=== PATIENT | male | born 1950 | race Caucasian/White ===

== ENCOUNTER 2023-03-12 09:43 | Day surgery (SDC) | payer MEDICARE, OTHER ==
[2023-03-12] MEDS ORDERED: IOPAMIDOL-250 100ML BTL IVP ONE (11:12)
--- NOTE | 2023-03-12 13:11 | IR ---
Fluoroscopic portogram([facility]). HISTORY: Device malfunction. The patient presented to the CVL with a Walker needle within the port. Preliminary fluoroscopy demonst rated the catheter to be intact. No evidence of obstruction or extravasation. An initial injection was outside the port and there was a little soft tissue collection of contrast. IMPRESSION: 1. Catheter is patent with no evidence of obstruction..
[2023-03-12 15:56] VITALS: BP 155/72; PULSE 98; RESP 18; TEMP 98.2
== END 2023-03-12 11:38 | disposition home or self-care (01) ==
LOC: CATHCVL 09:43
PROVIDERS: ATTEND Radiology Diagnostic Radiology
DX: C18.6 Malignant neoplasm of descending colon (principal); C78.7 Secondary malignant neoplasm of liver and intrahepatic bile duct; J43.9 Emphysema, unspecified; Z71.3 Dietary counseling and surveillance
CPT/HCPCS: 36598; Q9966

== ENCOUNTER 2023-04-01 08:31 | Inpatient (IN) | payer MEDICARE, OTHER ==
--- NOTE | 2023-04-01 08:58 | ED ---
General Adult HPI - General Stated complaint: chest pain Time Seen by Provider: 04/01/23 08:34 Source: patient, EMS, RN notes reviewed, old records reviewed Mode of arrival: EMS Limitations: no limitations - History of Present Illness Initial comments: 73-year-old male currently being treated for metastatic colon cancer on chemotherapeutic pump currently presenting for evaluation of lactic acidosis and chest pain. Patient was transferred from outside hospital. He had a workup done including laboratory testing, EKG, CT angiography of the chest. His workup revealed a lactic acidosis of 4.4. Patient does admit to poor appetite. He denies fever. He has a right chest wall Mediport and is currently receiving chemotherapy. He does follow with oncology at this institution. Patient denies current chest pain. The pain has been intermittent over the past one week. Each episode lasting approximately an hour. This is upper chest, bilateral with radiation to the right arm. - Related Data Home Medications Medication Instructions Recorded Confirmed ALPRAZolam [Xanax] 0.25 mg PO BID PRN 04/01/23 04/01/23 HYDROcodone/APAP 5-325MG [[place] 1 tab PO Q8H PRN 04/01/23 04/01/23 5-325] Lidocaine-Prilocaine Cream [Emla 1 applic TOPICAL DIRECTED PRN 04/01/23 04/01/23 Cream 2.5%/2.5%] Ondansetron Odt [Zofran Odt] 4 mg PO Q4H PRN 04/01/23 04/01/23 polyethylene glycoL 3350 [Miralax] 17 gm PO DAILY 04/01/23 04/01/23 Allergies Allergy/AdvReac Type Severity Reaction Status Date / Time No Known Allergies Allergy Verified 04/01/23 10:11 Review of Systems ROS Statement: Those systems with pertinent positive or pertinent negative responses have been documented in the HPI. ROS Other: All systems not noted in ROS Statement are negative. Past Medical History Past Medical History: Cancer Additional Past Medical History / Comment(s): Colon cancer- stage 4, colonoscopy History of Any Multi-Drug Resistant Organisms: None Reported Past Surgical History: No Surgical Hx Reported Past Psychological History: No Psychological Hx Reported Smoking Status: Former smoker Past Alcohol Use History: None Reported Past Drug Use History: None Reported General Exam Limitations: no limitations General appearance: alert, in no apparent distress Head exam: Present: atraumatic, normocephalic Eye exam: Present: normal appearance, PERRL ENT exam: Present: mucous membranes dry Neck exam: Present: normal inspection. Absent: tenderness, meningismus Respiratory exam: Present: normal lung sounds bilaterally. Absent: respiratory distress, wheezes Cardiovascular Exam: Present: normal rhythm, tachycardia GI/Abdominal exam: Present: soft. Absent: distended, tenderness, guarding Extremities exam: Present: normal capillary refill, pedal edema Neurological exam: Present: alert, oriented X3, CN II-XII intact. Absent: motor sensory deficit Psychiatric exam: Present: normal affect, normal mood Skin exam: Present: warm, dry, intact. Absent: cyanosis, diaphoretic Course Vital Signs 04/01/23 04/01/23 04/01/23 08:34 09:13 10:07 Temperature 97.7 F Pulse Rate 102 H 91 Pulse Rate [ 94 Spun Paste Machine Operator ] Respiratory 19 19 Rate Blood Pressure 142/84 111/64 O2 Sat by Pulse 100 98 Oximetry 04/01/23 11:11 Temperature Pulse Rate 79 Pulse Rate [ Spun Paste Machine Operator ] Respiratory 18 Rate Blood Pressure 131/67 O2 Sat by Pulse 97 Oximetry Medical Decision Making - Medical Decision Making Was pt. sent in by a medical professional or institution (, PA, SUGAR PLANTATION MANAGER, urgent care, hospital, or fci...) When possible be specific @ -No Did you speak to anyone other than the patient for history (EMS, parent, family, police, friend...)? What history was obtained from this source @ -No Did you review nursing and triage notes (agree or disagree)? Why? @ -I reviewed and agree with nursing and triage notes Were old charts reviewed (outside hosp., previous admission, EMS record, old EKG, old radiological studies, urgent care reports/EKG's, fci records)? Report findings @ -No old charts were reviewed Differential Diagnosis (chest pain, altered mental status, abdominal pain women, abdominal pain men, vaginal bleeding, weakness, fever, dyspnea, syncope, headache, dizziness, GI bleed, back pain, seizure, CVA, palpatations, mental he alth, musculoskeletal)? @ -not applicable EKG interpreted by me (3pts min.). @ -[Sinus rhythm low voltage rate of 99 WY interval 186, QRS duration 76, QTC 401, no ST segment elevation. Repeat EKG at 1126, sinus rhythm low voltage rate of 81, WY interval 166, QRS duration 86, QTC [address] segment elevation. X-rays interpreted by me (1pt min.). @ -None done CT interpreted by me (1pt min.). @ -[CT angiography was performed at outside hospital, radiology interpretation is negative, no PE, no acute findings. U/S interpreted by me (1pt. min.). @ -None done What testing was considered but not performed or refused? (CT, X-rays, U/S, labs)? Why? @ -None What meds were considered but not given or refused? Why? @ -None Did you discuss the management of the patient with other professionals (professionals i.e. , PA, SUGAR PLANTATION MANAGER, lab, RT, psych nurse, sr. social media & mobile manager, business development sales executive, teacher, ammunition officer, outsole caser)? Give summary @ Dr. Abudllahi Was smoking cessation discussed for >3mins.? @ -No Was critical care preformed (if so, how long)? @ -No Were there social determinants of health that impacted care today? How? (Homeles sness, low income, unemployed, alcoholism, drug addiction, transportation, low edu. Level, literacy, decrease access to med. care, snf, rehab)? @ -No Was there de-escalation of care discussed even if they declined (Discuss DNR or withdrawal of care, Hospice)? DNR status @ -No What co-morbidities impacted this encounter? (DM, HTN, Smoking, COPD, CAD, Cancer, CVA, ARF, Chemo, Hep., AIDS, mental health diagnosis, sleep apnea, morbid obesity)? @ Stage IV colon cancer Was patient admitted / discharged? Hospital course, mention meds given and route, prescriptions, significant lab abnormalities, going to OR and other pertinent info. @ -73-year-old male transferred from outside hospital for evaluation of chest pain, lactic acidosis, stage IV colon cancer. Repeat laboratory tests will be ordered including CBC, CMP, lactic acid and troponin testing. The only initial abnormality of significance was a lactic acid of 4.4. He denies any current chest pain symptoms and his pain seems atypical. Repeat troponin will be ordered. Patient will be admitted to internal medicine with oncology on consult. Undiagnosed new problem with uncertain prognosis? @ -No Drug Therapy requiring intensive monitoring for toxicity (Heparin, Nitro, Insulin, Cardizem)? @ -No Were any procedures done? @ -No] Diagnosis/symptom? @ -[Stage IV colon cancer, lactic acidosis, chest pain Acute, or Chronic, or Acute on Chronic? @ -[Acute chronic Uncomplicated (without systemic symptoms) or Complicated (systemic symptoms)? @ -[default] Side effects of treatment? @ -[No] Exacerbation, Progression, or Severe Exacerbation? @ -[No] Poses a threat to life or bodily function? How? (Chest pain, USA, CA, pneumonia, PE, COPD, DKA, ARF, appy, cholecystitis, CVA, Diverticulitis, Homicidal, Suicidal, threat to staff... and all critical care pts) @ -[Yes, moderate risk, chest pain, stage IV cancer - Lab Data Result diagrams: 04/01/23 08:50 04/01/23 08:50 Lab Results 04/01/23 04/01/23 04/01/23 Range/Units 08:50 08:50 08:50 WBC 3.5 L (3.8-10.6) k/uL RBC 4.17 L (4.30-5.90) m/uL Hgb 11.5 L (13.0-17.5) gm/dL Hct 35.3 L (39.0-53.0) % MCV 84.7 (80.0-100.0) fL MCH 27.7 (25.0-35.0) pg MCHC 32.7 (31.0-37.0) g/dL RDW 18.8 H (11.5-15.5) % Plt Count 264 (150-450) k/uL MPV 8.5 Neutrophils % 75 % Lymphocytes % 12 % Monocytes % 10 % Eosinophils % 0 % Basophils % 0 % Neutrophils # 2.7 (1.3-7.7) k/uL Lymphocytes # 0.4 L (1.0-4.8) k/uL Monocytes # 0.3 (0-1.0) k/uL Eosinophils # 0.0 (0-0.7) k/uL Basophils # 0.0 (0-0.2) k/uL Manual Slide Review Performed Anisocytosis Slight Sodium 137 (137-145) mmol/L Potassium 4.2 (3.5-5.1) mmol/L Chloride 104 (98-107) mmol/L Carbon Dioxide 22 (22-30) mmol/L Anion Gap 11 mmol/L BUN 19 (9-20) mg/dL Creatinine 0.72 (0.66-1.25) mg/dL Est GFR (CKD-EPI)AfAm >90 (>60 ml/min/1.73 sqM) Est GFR (CKD-EPI)NonAf >90 (>60 ml/min/1.73 sqM) Glucose 166 H (74-99) mg/dL Plasma Lactic Acid Jabari 2.1 H* (0.7-2.0) mmol/L Calcium 8.8 (8.4-10.2) mg/dL Total Bilirubin 0.6 (0.2-1.3) mg/dL AST 45 (17-59) U/L ALT 32 (4-49) U/L Alkaline Phosphatase 109 (38-126) U/L Troponin I (0.000-0.034) ng/mL Total Protein 6.7 (6.3-8.2) g/dL Albumin 3.3 L (3.5-5.0) g/dL 04/01/23 Range/Units 08:50 WBC (3.8-10.6) k/uL RBC (4.30-5.90) m/uL Hgb (13.0-17.5) gm/dL Hct (39.0-53.0) % MCV (80.0-100.0) fL MCH (25.0-35.0) pg MCHC (31.0-37.0) g/dL RDW (11.5-15.5) % Plt Count (150-450) k/uL MPV Neutrophils % % Lymphocytes % % Monocytes % % Eosinophils % % Basophils % % Neutrophils # (1.3-7.7) k/uL Lymphocytes # (1.0-4.8) k/uL Monocytes # (0-1.0) k/uL Eosinophils # (0-0.7) k/uL Basophils # (0-0.2) k/uL Manual Slide Review Anisocytosis Sodium (137-145) mmol/L Potassium (3.5-5.1) mmol/L Chloride (98-107) mmol/L Carbon Dioxide (22-30) mmol/L Anion Gap mmol/L BUN (9-20) mg/dL Creatinine (0.66-1.25) mg/dL Est GFR (CKD-EPI)AfAm (>60 ml/min/1.73 sqM) Est GFR (CKD-EPI)NonAf (>60 ml/min/1.73 sqM) Glucose (74-99) mg/dL Plasma Lactic Acid Jabari (0.7-2.0) mmol/L Calcium (8.4-10.2) mg/dL Total Bilirubin (0.2-1.3) mg/dL AST (17-59) U/L ALT (4-49) U/L Alkaline Phosphatase (38-126) U/L Troponin I 0.014 (0.000-0.034) ng/mL Total Protein (6.3-8.2) g/dL Albumin (3.5-5.0) g/dL Disposition Clinical Impression: Chest pain, Lactic acidosis, Colon cancer Disposition: ADMITTED IP TO THIS [facility] Condition: Stable Is patient prescribed a controlled substance at d/c from ED?: No Time of Disposition: 09:43
[2023-04-01] MEDS: SODIUM CHLORIDE 0.9% 1,000 ML IV SCH ×2 (09:27→20:42)
[2023-04-01 09:30] LABS: Anisocytosis Slight; Basophils % (A) 0 %; Eosinophils % (A) 0 %; HCT 35.3 % (39.0-53.0); HGB 11.5 gm/dL (13.0-17.5); Lymphocytes # (A) 0.4 k/uL (1.0-4.8); Lymphocytes % (A) 12 %; MCH 27.7 pg (25.0-35.0); MCHC 32.7 g/dL (31.0-37.0); MCV 84.7 fL (80.0-100.0); Mean Platelet Volume 8.5; Monocytes # (A) 0.3 k/uL (0-1.0); Monocytes % (A) 10 %; Neutrophils # (A) 2.7 k/uL (1.3-7.7); Neutrophils % (A) 75 %; Platelet Count 264 k/uL (150-450); RBC 4.17 m/uL (4.30-5.90); RDW 18.8 % (11.5-15.5); WBC 3.5 k/uL (3.8-10.6)
[2023-04-01] MEDS ORDERED: HYDROmorphone 0.5 MG/0.5 ML SYRINGE IVP PRN (09:40)
[2023-04-01] MEDS ORDERED: NALOXONE 0.4 MG/ML 1 ML VIAL IV PRN (09:40)
[2023-04-01 09:53] LABS: ALT 32 U/L (4-49); AST 45 U/L (17-59); African American GFR (CKD) >90 (>60 ml/min/1.73 sqM); Albumin 3.3 g/dL (3.5-5.0); Alkaline Phosphatase 109 U/L (38-126); Anion Gap 11 mmol/L; Blood Urea Nitrogen 19 mg/dL (9-20); Calcium 8.8 mg/dL (8.4-10.2); Carbon Dioxide 22 mmol/L (22-30); Chloride 104 mmol/L (98-107); Glucose 166 mg/dL (74-99); Non-African American GFR(CKD) >90 (>60 ml/min/1.73 sqM); Potassium 4.2 mmol/L (3.5-5.1); Sodium 137 mmol/L (137-145); Total Bilirubin 0.6 mg/dL (0.2-1.3); Total Protein 6.7 g/dL (6.3-8.2)
[2023-04-01] MEDS ORDERED: CYCLOBENZAPRINE 10 MG TAB PO PRN (12:54)
[2023-04-01] MEDS: HYDROmorphone 1 MG/ML 1 ML SYRINGE IVP PRN ×2 (15:26→22:34)
[2023-04-01] MEDS ORDERED: ONDANSETRON 4 MG/2 ML VIAL IVP PRN (16:21)
[2023-04-01] MEDS ORDERED: MELATONIN 3 MG TABLET PO PRN (16:21)
[2023-04-01] MEDS ORDERED: ACETAMINOPHEN TAB 325 MG TAB PO PRN (16:21)
--- NOTE | 2023-04-01 16:26 | P.HPIM ---
History of Present Illness H&P Date: 04/01/23 (delayed charting seen at 1215) Patient is a 73-year-old male with a history of stage IV colon cancer currently on FOLFOX therapy who presented to the ER from an outside hospital due to lactic acidosis. He initially presented there for chest pain. The area under did a CT of the chest which showed stable known pulmonary and liver masses with no pulmonary embolism. He was found to have a lactic acid of 4.4 was started on IV fluids. Initial troponin was negative and EKG showed no signs of acute ischemia. On arrival to our ER his vital signs were significant for pulse of 102. Laboratory analysis was significant for white blood cell count of 3.5, hemoglobin 11.5. BMP, liver enzymes, and troponin were unremarkable. Lactic acid was down to 2.1. EKG here showed sinus rhythm at a rate of 81 with normal intervals, normal access, and no significant ST-T wave changes. Arrangements were made for admission for chest pain. Patient seen and examined at bedside. He reports that he had a similar episode last time he was completing his FOLFOX therapy and he is due to have his chemo system removed today. He reports that pain is a burning sensation across his chest which comes and goes but has been fairly constant for the last day. He is unable to tell me what makes it better or worse. He does have some shortness of breath and some pain down his right arm, he denies diaphoresis or nausea. He has been eating and drinking very little with his chemo well. He denies any diarrhea. He is unable to describe the symptoms are pain further and just states his pain is currently a 10 out of 10. He denies any history of cardiac problems, hypertension, or dyslipidemia. Vital signs reviewed General: Ill-appearing, moderate distress, appears at stated age Derm: warm, dry Eyes: EOMI, no lid lag, anicteric sclera, pupils equal round reactive to light ENT: Nose and ears atraumatic, no thrush, + pharyngeal erythema, + oral ulcer, pinpoint Cardiovascular: S1S2 reg, no murmur, positive posterior tibial pulse bilateral, no edema, capillary refill less than 2 seconds, no pain to palpation of anterior chest Lungs: clear to auscultation bilateral, no rhonchi, no rales, no wheeze, no accessory muscle use Abdominal: soft, nontender to palpation, no guarding, no appreciable organomegaly, normal bowel sounds Ext: no gross muscle atrophy, no contractures Neuro: CN II-XII grossly intact, no focal neuro deficits noted Psych: Alert, oriented, appropriate affect Assessment/Plan: Chest pain lactic acidosis Stage IV colon cancer - CTA chest negative, trop negative X 2 - suspect related to chemo, consult Dr. Naldo wilkinson, check echo - norco 10 mg every 6 hours when necessary pain, Dilaudid 0.5 mg every 3 hours pain scale 4-6, 1 mg every 3 hours for pain scale 7-10 and follow lactic acid -Normal saline at 75 mL/h Imaging: As per HPI Data Review: As per HPI The patient is admitted with an anticipated greater than 2 midnight stay for evaluation of chest pain. CODE STATUS:Does not want CPR/ vent, okay with elective cardiovesrion, vasopres sor, antiarrhythmics DVT prophylaxis: Lovenox Anticipated discharge date: Pending Clinical Course Anticipated discharge place: Pending Clinical Course This dictation was prepared using [employer] voice recognition software. Though every attempt is made to correct errors during dictation some may still exist. Past Medical History Past Medical History: Cancer Additional Past Medical History / Comment(s): Colon cancer- stage 4, colonoscopy History of Any Multi-Drug Resistant Organisms: None Reported Past Surgical History: No Surgical Hx Reported Additional Past Surgical History / Comment(s): colonoscopy, R port placement Past Anesthesia/Blood Transfusion Reactions: No Reported Reaction Past Psychological History: No Psychological Hx Reported Smoking Status: Former smoker Past Alcohol Use History: None Reported Additional Past Alcohol Use History / Comment(s): patient lives with son, patient independent, patient quit smoking 40 years ago Past Drug Use History: None Reported Medications and Allergies Home Medications Medication Instructions Recorded Confirmed Type ALPRAZolam [Xanax] 0.25 mg PO BID PRN 04/01/23 04/01/23 History HYDROcodone/APAP 5-325MG [[place] 1 tab PO Q8H PRN 04/01/23 04/01/23 History 5-325] Lidocaine-Prilocaine Cream [Emla 1 applic TOPICAL DIRECTED PRN 04/01/23 04/01/23 History Cream 2.5%/2.5%] Ondansetron Odt [Zofran Odt] 4 mg PO Q4H PRN 04/01/23 04/01/23 History polyethylene glycoL 3350 [Miralax] 17 gm PO DAILY 04/01/23 04/01/23 History Allergies Allergy/AdvReac Type Severity Reaction Status Date / Time No Known Allergies Allergy Verified 04/01/23 10:11 Physical Exam Osteopathic Statement: *. No significant issues noted on an osteopathic structural exam other than those noted in the History and Physical/Consult. Vitals: Vital Signs Temp Pulse Pulse Pulse Resp BP BP 04/01/23 15:02 97.7 F 108 H 24 165/100 04/01/23 14:28 97.8 F 98 18 126/66 04/01/23 13:41 112 H 18 142/67 04/01/23 12:07 87 20 180/75 04/01/23 11:11 79 18 131/67 04/01/23 10:07 91 19 111/64 04/01/23 09:13 94 04/01/23 08:34 97.7 F 102 H 19 142/84 Pulse Ox 04/01/23 15:02 97 04/01/23 14:28 96 04/01/23 13:41 96 04/01/23 12:07 98 04/01/23 11:11 97 04/01/23 10:07 98 04/01/23 09:13 04/01/23 08:34 100 Intake and Output 04/01/23 04/01/23 04/01/23 06:59 14:59 22:59 Other: Weight 115.212 kg Results CBC & Chem 7: 04/01/23 08:50 04/01/23 08:50 Labs: Abnormal Lab Results - Last 24 Hours (Table) 04/01/23 04/01/23 04/01/23 Range/Units 08:50 08:50 08:50 WBC 3.5 L (3.8-10.6) k/uL RBC 4.17 L (4.30-5.90) m/uL Hgb 11.5 L (13.0-17.5) gm/dL Hct 35.3 L (39.0-53.0) % RDW 18.8 H (11.5-15.5) % Lymphocytes # 0.4 L (1.0-4.8) k/uL Glucose 166 H (74-99) mg/dL Plasma Lactic Acid Jabari 2.1 H* (0.7-2.0) mmol/L Albumin 3.3 L (3.5-5.0) g/dL Thrombosis Risk Factor Assmnt - Choose All That Apply Each Risk Factor Represents 2 Points: Age 61-74 years Other congenital or acquired thrombophilia - If yes, enter type in comment: No Thrombosis Risk Factor Assessment Total Risk Factor Score: 2 Thrombosis Risk Factor Assessment Level: Low Risk
[2023-04-01] MEDS: CYCLOBENZAPRINE 5 MG TAB PO PRN (18:09)
[2023-04-01] MEDS: ALPRAZolam 0.25 MG TAB PO PRN (18:09)
[2023-04-02] MEDS: HYDROmorphone 1 MG/ML 1 ML SYRINGE IVP PRN (05:08)
[2023-04-02] MEDS: CYCLOBENZAPRINE 5 MG TAB PO PRN ×2 (05:42→17:10)
[2023-04-02] MEDS: ALPRAZolam 0.25 MG TAB PO PRN (05:42)
[2023-04-02 08:44] LABS: HCT 35.9 % (39.6-50.0); MCH 26.7 pg (27.0-32.0); MCHC 30.6 d/dL (32.0-37.0); MCV 87.1 FL (80.0-97.0); Mean Platelet Volume 10.2 FL (9.5-12.2); NRBC Per 100 WBC 0 X 10*3/uL (0.00-0.01); Platelet Count 321 X 10*3/uL (140-440); RBC 4.12 X 10*6/uL (4.40-5.60); RDW 19.9 % (11.5-14.5)
[2023-04-02 08:57] LABS: BUN/Creat Ratio 20.75 Ratio (12.00-20.00); Blood Urea Nitrogen 16.6 mg/dL (9.0-27.0); Calcium 8.6 mg/dL (8.7-10.3); Carbon Dioxide 20.2 mmol/L (21.6-31.8); Chloride 104 mmol/L (96-109); Glucose 134 mg/dL (70-110); Potassium 4.1 mmol/L (3.5-5.5); Sodium 139 mmol/L (135-145)
[2023-04-02] MEDS ORDERED: ENOXAPARIN 40 MG/0.4 ML SYRINGE SQ SCH (09:00)
[2023-04-02] MEDS: polyethylene glycoL 3350 17 GM POWD.PACK PO SCH (09:32)
[2023-04-02] MEDS: SODIUM CHLORIDE 0.9% 1,000 ML IV SCH ×2 (09:32→22:16)
--- NOTE | 2023-04-02 11:42 | CA ---
Transthoracic Echo Report Name: Pepe Zuniga Age: 73 Gender: M : 1950 Exam Date: 04/02/2023 07:36 Exam Location: [place] [facility] Ht (in): 72 Wt (lb): 254 Ordering Physician: Vani Abdullahi DO Attending/Referring Phys: [id number], Bradly Guitar Repairer Marion Beltre [facility] Procedure CPT: Indications: Chest Pain Cardiac Hx: Technical Quality: Fair Contrast 1: Total Dose (mL): Contrast 2: Total Dose (mL): MEASUREMENTS (Male / Female) Normal Values 2D ECHO LV Diastolic Diameter PLAX 4.9 cm 4.2 - 5.9 / 3.9 - 5.3 cm LV Systolic Diameter PLAX 3.8 cm IVS Diastolic Thickness 1.4 cm 0.6 - 1.0 / 0.6 - 0.9 cm LVPW Diastolic Thickness 1.1 cm 0.6 - 1.0 / 0.6 - 0.9 cm LV Relative Wall Thickness 0.5 LVOT Diameter 2.2 cm LV Diastolic Volume MOD BP 76.0 cm??? 67 - 155 / 56 - 104 cm??? LV Systolic Volume MOD BP 46.3 cm??? 22 - 58 / 19 - 49 cm??? LV Ejection Fraction MOD BP 39.1 % >= 55 % LV Cardiac Index MOD BP 1065.4 cm???/min???m??? LV Diastolic Volume MOD 4C 88.6 cm??? LV Systolic Volume MOD 4C 58.2 cm??? LV Ejection Fraction MOD 4C 34.3 % LV Cardiac Index MOD 4C 1087.2 cm???/min???m??? LV Diastolic Length 4C 7.7 cm LV Systolic Length 4C 6.5 cm LV Diastolic Volume MOD 2C 64.9 cm??? LV Systolic Volume MOD 2C 35.2 cm??? LV Ejection Fraction MOD 2C 45.7 % LV Cardiac Index MOD 2C 1063.8 cm???/min???m??? LV Diastolic Length 2C 7.8 cm LV Systolic Length 2C 6.9 cm Ascending Aorta Diameter 3.6 cm M-MODE Aortic Root Diameter MM 3.4 cm LA Systolic Diameter MM 3.4 cm LA Ao Ratio MM 1.0 AV Cusp Separation MM 2.6 cm DOPPLER AV Peak Velocity 112.0 cm/s AV Peak Gradient 5.0 mmHg AV Mean Velocity 69.2 cm/s AV Mean Gradient 2.2 mmHg AV Velocity Time Integral 18.5 cm LVOT Peak Velocity 87.0 cm/s LVOT Peak Gradient 3.0 mmHg LVOT Velocity Time Integral 17.5 cm LVOT Stroke Volume 64.6 cm??? LVOT Stroke Volume Index 27.4 ml/m??? LVOT Cardiac Index 2315.1 cm???/min???m??? AV Area Cont Eq vti 3.5 cm??? AV Area Cont Eq pk 2.9 cm??? Mitral E Point Velocity 44.2 cm/s Mitral A Point Velocity 76.4 cm/s Mitral E to A Ratio 0.6 MV Deceleration Time 214.7 ms LV E' Lateral Velocity 6.3 cm/s Mitral E to LV E' Lateral Ratio 7.0 LV E' Septal Velocity 6.5 cm/s Mitral E to LV E' Septal Ratio 6.8 TR Peak Velocity 250.2 cm/s TR Peak Gradient 25.0 mmHg Right Atrial Pressure 15.0 mmHg Pulmonary Artery Systolic Pressu 40.0 mmHg Right Ventricular Systolic Press 40.0 mmHg FINDINGS Left Ventricle Moderately increased septal wall thickness. Mildly increased posterior wall thickness. Moderately decreased left ventricular ejection fraction. Left ventricular cavity size normal. Hypokinetic inferior wall. Apical inferior wall appears dyskinetic. Left ventricular ejection fraction is estimated at 40-45%. Right Ventricle Mild right ventricular dilatation. Moderate pulmonary hypertension. Right Atrium Normal right atrial size. Left Atrium Normal left atrial size. Mitral Valve Structurally normal mitral valve. Trace mitral regurgitation. Aortic Valve Trileaflet aortic valve. Thickened aortic valve without stenosis. No aortic regurgitation. Tricuspid Valve Structurally normal tricuspid valve. Mild tricuspid regurgitation. Pulmonic Valve Structurally normal pulmonic valve. Mild pulmonic regurgitation. Pericardium No pericardial effusion. Echo free space anterior to the right ventricle likely represents a fat pad. Aorta Aorta at upper limits of normal. CONCLUSIONS Mild to moderate LV systolic dysfunction Hypokinesis of the inferior wall suggestive of prior myocardial infarction Previewed by: Dr. Ronan Messina MD (Electronically Signed) Final Date: 02 April 2023 11:41
--- NOTE | 2023-04-02 13:30 | US ---
EXAMINATION TYPE: US venous doppler duplex UE RT DATE OF EXAM: 04/02/2023 COMPARISON: NONE CLINICAL INDICATION: Male, 73 years old with history of hx met cancer, port R chest wall, c/o chest p ain; Arm pain. No redness or swelling. SIDE PERFORMED: Right Right Arm: Negative for DVT IMPRESSION: No diagnostic evidence of DVT..
[2023-04-02] MEDS: HYDROcodone/APAP 10-325MG 1 EACH TAB PO PRN ×2 (14:02→22:20)
[2023-04-02 15:14] VITALS: BMI 34.4
[2023-04-02] MEDS ORDERED: HEPARIN SODIUM 1,000 UN/ML (10ML VL) IV PRN (15:17)
[2023-04-02] MEDS ORDERED: HEPARIN SODIUM 1,000 UN/ML (10ML VL) IV ONE (15:17)
[2023-04-02] MEDS ORDERED: HEPARIN SOD,PORK IN 0.45% NACL 25,000 UNIT in 0.45% NACL 1 250ML.BAG IV SCH (15:30)
[2023-04-02 16:09] LABS: INR 1.3 (<1.2); Prothrombin Time 12.8 sec (9.0-12.0)
[2023-04-02 16:38] LABS: Partial Thromboplastin Time 63.9 sec (22.0-30.0)
[2023-04-02] MEDS ORDERED: METOPROLOL TARTRATE 12.5 MG TAB PO STA (16:40)
[2023-04-02] MEDS ORDERED: ASPIRIN 81 MG PO STA (16:40)
--- NOTE | 2023-04-02 19:18 | P.PN ---
Subjective Progress Note Date: 04/02/23 (delayed charting seen at 0955) Patient is a 73-year-old male with a history of stage IV colon cancer currently on FOLFOX therapy who presented to the ER from an outside hospital due to lactic acidosis. He initially presented there for chest pain. The area under did a CT of the chest which showed stable known pulmonary and liver masses with no pulmonary embolism. He was found to have a lactic acid of 4.4 was started on IV fluids. Initial troponin was negative and EKG showed no signs of acute ischemia. On arrival to our ER his vital signs were significant for pulse of 102. Laboratory analysis was significant for white blood cell count of 3.5, hemoglobin 11.5. BMP, liver enzymes, and troponin were unremarkable. Lactic acid was down to 2.1. EKG here showed sinus rhythm at a rate of 81 with normal intervals, normal access, and no significant ST-T wave changes. Arrangements were made for admission for chest pain. He respoineded well to dilaudid. Patient seen and examined at bedside. He reports that his chest pain is resolved since yesterday. The Flexeril didn't seem to help. He denies any shortness of breath, nausea, vomiting. Vital signs reviewed General: nontoxic, no distress, appears at stated age Cardiovascular: S1S2 reg, no murmur, positive posterior tibial pulse bilateral, Lungs: CTA bilateral, no rhonchi, no rales , no accessory muscle use Abdominal: soft, nontender to palpation, no guarding, no appreciable organomegaly Ext: no gross muscle atrophy, no edema b/l lower extremities, no contractures Neuro: CN II-XI grossly intact, no focal neuro deficits Psych: Alert, oriented, appropriate affect Assessment/Plan: Chest Pain Systolic cardiomyopathy, undetermined etiology Stage IV colon cancer, completed round 2 of Folfox - CTA chest negative, trop negative X 3 -Repeat troponin ordered and remained negative at 0.015 -Patient started on aspirin 81 mg daily, metoprolol 12.5 mg twice daily, lisinop ril 2.5 mg daily -Cardiology consulted -Patient nothing by mouth after midnight -Check ferritin and TSH -Stat EKG reordered which shows normal sinus rhythm with 1 PVC at a rate of 101, normal axis, normal intervals with T-wave inversion in lead 1, V2 and V3. Initially considered heparin drip of patient's PTT is already elevated at 69 which would put it in therapeutic range. - norco 10 mg every 6 hours when necessary pain, Dilaudid 0.5 mg every 3 hours pain scale 4-6, 1 mg every 3 hours for pain scale 7-10 and follow lactic acid -Normal saline at 75 mL/h Imaging: Echocardiogram-ejection fraction 40-45% with hypokinesis of the inferior wall Venous doppler right upper extreity- negative for DVT Data Review: Labs today reviewed include CBC, basic metabolic profile which were remarkable for white blood cell count 4.4, hemoglobin 11, glucose of 134. DVT prophylaxis: Lovenox This dictation was prepared using [employer] voice recognition software. Though every attempt is made to correct errors during dictation some may still exist. Objective - Vital Signs Vital signs: Vital Signs Temp 97.6 F 04/02/23 13:43 Pulse 114 H 04/02/23 13:43 Resp 28 H 04/02/23 13:43 BP 167/96 04/02/23 13:43 Pulse Ox 98 04/02/23 13:43 FiO2 Intake & Output 04/02/23 04/02/23 04/03/23 06:59 18:59 06:59 Output Total 350 Balance -350 Weight 115.212 kg Output: Urine 350 Other: Voiding Method Toilet Toilet # Voids 1 1 - Labs CBC & Chem 7: 04/02/23 05:21 04/02/23 05:21 Labs: Abnormal Lab Results - Last 24 Hours (Table) 04/02/23 04/02/23 04/02/23 Range/Units 05:21 05:21 15:21 WBC 4.40 L (4.50-10.00) X 10*3/uL RBC 4.12 L (4.40-5.60) X 10*6/uL Hgb 11.0 L (13.0-17.0) d/dL Hct 35.9 L (39.6-50.0) % MCH 26.7 L (27.0-32.0) pg MCHC 30.6 L (32.0-37.0) d/dL RDW 19.9 H (11.5-14.5) % PT 12.8 H (9.0-12.0) sec INR 1.3 H (<1.2) APTT 63.9 H (22.0-30.0) sec Carbon Dioxide 20.2 L (21.6-31.8) mmol/L Anion Gap 14.80 H (4.00-12.00) mmol/L BUN/Creatinine Ratio 20.75 H (12.00-20.00) Ratio Glucose 134 H (70-110) mg/dL Calcium 8.6 L (8.7-10.3) mg/dL
[2023-04-02] MEDS: METOPROLOL TARTRATE 12.5 MG TAB PO SCH (20:38)
--- NOTE | 2023-04-02 22:05 | P.CONS ---
History of Present Illness - Reason for Consult Consult date: 04/02/23 colon cancer Requesting physician: Romain Hayes - Chief Complaint chest pain - History of Present Illness Patient is a 73 year old male with a significant history of metastatic colon adenocarcinoma. He is a patient of Dr. Hitchcock. The patient states that he had initially sought attention with his PCP around the beginning of 01/18 because of bleeding in the urine. The patient was recommended to have a colonoscopy, as he had never had one before. This was performed in mid 01/18, and revealed a sigmoid mass with compromise of the lumen. The patient had a biopsy, but then developed rectal bleeding, because of dislodgment of the clip. He was admitted to [facility] for the same requiring several units of blood transfusion. CT angiogram of the abdomen and pelvis on admission which showed active bleeding in the rectum, and also showed multiple liver and lung masses. The largest liver mass was 7 cm, and largest lung lesion was 1.4 cm in the lingula. There are also scattered omental nodules measuring up to 1.3 cm compatible with carcinomatosis. The patient had liver biopsy on 01/26/23, showing metastatic adenocarcinoma consistent with colorectal origin. The patient was then seen by medical oncology, Dr. Ferrer at [facility]. MRI of the brain, as well as biomarker testing was recommended. The patient was recommended to start chemotherapy with FOLFOX in the meantime with, presumably, plans to add an appropriate targeted agent depending on the results of the b iomarker testing subsequently. He then established care within our clinic as he wanted treatment more locally. MRI brain on 03/05/23 was negative for metastasis. Patient completed cycle 2 of FOLFOX on 04/01/23. Patient was transferred to [facility] from [facility] after presenting with complaints of chest pain. CTA chest was obtained while at their facility which was negative for PE and other acute processes. Troponins negative. WBC 4.4, hemoglobin 11.0, platelets 321,000. Pt afebrile, SPO2 99% on 2L. Patient reports that chest pain began the day after his 5-FU chemo pump was placed. Patient reports pain was sharp and went across his chest. Patient does report that after his pump was removed after cycle 1 he experienced similar symptoms. Patient denies dysphagia but has been experiencing some cold sensitivity since starting treatment. Denies recent cough and upper respiratory symptoms. Reports chest pain has resolved. Echocardiogram has been ordered. Review of Systems 10 point ROS is negative except as stated in the HPI Past Medical History Past Medical History: Cancer Additional Past Medical History / Comment(s): Colon cancer- stage 4, colonoscopy History of Any Multi-Drug Resistant Organisms: None Reported Past Surgical History: No Surgical Hx Reported Additional Past Surgical History / Comment(s): colonoscopy, R port placement Past Anesthesia/Blood Transfusion Reactions: No Reported Reaction Past Psychological History: No Psychological Hx Reported Smoking Status: Former smoker Past Alcohol Use History: None Reported Additional Past Alcohol Use History / Comment(s): patient lives with son, patient independent, patient quit smoking 40 years ago Past Drug Use History: None Reported Medications and Allergies Home Medications Medication Instructions Recorded Confirmed Type ALPRAZolam [Xanax] 0.25 mg PO BID PRN 04/01/23 04/01/23 History HYDROcodone/APAP 5-325MG [[place]orton 1 tab PO Q8H PRN 04/01/23 04/01/23 History 5-325] Lidocaine-Prilocaine Cream [Emla 1 applic TOPICAL DIRECTED PRN 04/01/23 04/01/23 History Cream 2.5%/2.5%] Ondansetron Odt [Zofran Odt] 4 mg PO Q4H PRN 04/01/23 04/01/23 History polyethylene glycoL 3350 [Miralax] 17 gm PO DAILY 04/01/23 04/01/23 History Allergies Allergy/AdvReac Type Severity Reaction Status Date / Time No Known Allergies Allergy Verified 04/01/23 10:11 Physical Exam Vitals: Vital Signs Temp Pulse Pulse Resp BP BP Pulse Ox 04/02/23 20:25 98.5 F 88 18 111/62 93 L 04/02/23 13:43 97.6 F 114 H 28 H 167/96 98 04/02/23 07:23 97.9 F 91 14 129/71 99 04/02/23 01:19 97.8 F 85 18 144/82 100 Intake and Output 04/02/23 04/02/23 04/02/23 06:59 14:59 22:59 Output Total 350 Balance -350 Output: Urine 350 Other: Voiding Method Toilet # Voids 1 Weight 115.212 kg - Constitutional General appearance: average body habitus, no acute distress - EENT Eyes: anicteric sclerae, EOMI ENT: hearing grossly normal - Respiratory Respiratory: bilateral: CTA - Cardiovascular Rhythm: regular Heart sounds: normal: S1, S2 Abnormal Heart Sounds: no systolic murmur, no diastolic murmur, no rub, no S3 Gallop, no S4 Gallop, no click, no other leg Peripheral Edema: bilateral: None - Gastrointestinal General gastrointestinal: soft, no tenderness - Integumentary Integumentary: no cyanotic, no jaundiced - Neurologic Neurologic: CNII-XII intact - Musculoskeletal no chest wall tenderness upon palpation Musculoskeletal: strength equal bilaterally - Psychiatric Psychiatric: A&O x's 3, appropriate affect, intact judgment & insight Results CBC & Chem 7: 04/02/23 05:21 04/02/23 05:21 Labs: Abnormal Lab Results - Last 24 Hours (Table) 04/02/23 04/02/23 04/02/23 Range/Units 05:21 05:21 15:21 WBC 4.40 L (4.50-10.00) X 10*3/uL RBC 4.12 L (4.40-5.60) X 10*6/uL Hgb 11.0 L (13.0-17.0) d/dL Hct 35.9 L (39.6-50.0) % MCH 26.7 L (27.0-32.0) pg MCHC 30.6 L (32.0-37.0) d/dL RDW 19.9 H (11.5-14.5) % PT 12.8 H (9.0-12.0) sec INR 1.3 H (<1.2) APTT 63.9 H (22.0-30.0) sec Carbon Dioxide 20.2 L (21.6-31.8) mmol/L Anion Gap 14.80 H (4.00-12.00) mmol/L BUN/Creatinine Ratio 20.75 H (12.00-20.00) Ratio Glucose 134 H (70-110) mg/dL Calcium 8.6 L (8.7-10.3) mg/dL Assessment and Plan (1) Chest pain Current Visit: Yes Status: Acute Priority: High Code(s): R07.9 - CHEST PAIN, UNSPECIFIED SNOMED Code(s): 51761230 (2) Colon cancer Current Visit: Yes Status: Acute Priority: High Code(s): C18.9 - MALIGNANT NEOPLASM OF COLON, UNSPECIFIED SNOMED Code(s): 867984248 Plan: Chest pain: -Reporting chest pain with cycle 1 and 2 with chemo 5FU pump. -CTA negative for PE/acute processes. Troponins negative -Echo ordered -Will obtain doppler of RUE to further r/o other causes of discomfort -Spoke with IM team regarding case. Norton was increased and flexeril has been started. Symptoms seem to be likely related to MSK chest wall pain or esophageal spasms due to increasing cold sensitivities. Will await pending workup. Muscle relaxer will be continued during next cycle and symptoms will be continued to be monitored Metastatic colon adenocarcinoma: -History as stated in the HPI -Completed cycle 2 of FOLFOX on 04/01/23. Overall tolerating treatment well -Clinic f/u upon discharge. Will try muscle relaxer with next cycle to see if symptoms improve. Will continue to monitor symptoms attests: I seen and examined patient, performed H&P, developed impression a nd plan of care. Discussed with dictator. Agree with documentation, dictated as a scribe.
[2023-04-03 06:37] LABS: Anisocytosis Slight; HCT 34.5 % (39.0-53.0); HGB 10.9 gm/dL (13.0-17.5); Hypochromasia Slight; MCH 27.5 pg (25.0-35.0); MCHC 31.6 g/dL (31.0-37.0); MCV 86.8 fL (80.0-100.0); Mean Platelet Volume 8.4; Platelet Count 246 k/uL (150-450); RBC 3.97 m/uL (4.30-5.90); RDW 18.2 % (11.5-15.5); WBC 3.2 k/uL (3.8-10.6)
[2023-04-03] MEDS: METOPROLOL TARTRATE 12.5 MG TAB PO SCH (08:23)
[2023-04-03] MEDS: HYDROcodone/APAP 10-325MG 1 EACH TAB PO PRN (08:27)
[2023-04-03 08:40] VITALS: BP 138/75; RESP 19; TEMP 98.4
[2023-04-03] MEDS: polyethylene glycoL 3350 17 GM POWD.PACK PO SCH ×2 (08:55→08:56)
[2023-04-03] MEDS ORDERED: ISOSORBIDE MONONITRATE ER 30 MG TAB.ER.24H PO SCH (09:00)
[2023-04-03] MEDS ORDERED: ASPIRIN 81 MG PO SCH (09:00)
[2023-04-03 09:30] VITALS: PULSE 92
[2023-04-03 09:32] LABS: African American GFR (CKD) >90 (>60 ml/min/1.73 sqM); Anion Gap 9 mmol/L; Blood Urea Nitrogen 19 mg/dL (9-20); Calcium 8.3 mg/dL (8.4-10.2); Carbon Dioxide 22 mmol/L (22-30); Chloride 104 mmol/L (98-107); Glucose 132 mg/dL (74-99); Non-African American GFR(CKD) >90 (>60 ml/min/1.73 sqM); Potassium 3.9 mmol/L (3.5-5.1); Sodium 135 mmol/L (137-145)
--- NOTE | 2023-04-03 09:41 | P.DS ---
Providers Date of admission: 04/01/23 09:41 Expected date of discharge: 04/03/23 Attending physician: Vani Abdullahi DO Consults: 04/01/23 09:40 Consult Physician Routine Consulting Provider: Bryan Hitchcock Consult Reason/Comments: Stage IV colon cancer Do you want consulting provider notified?: Yes 04/02/23 15:04 Consult Physician Routine Consulting Provider: Solis Walls Consult Reason/Comments: chest pain, new cardiomyopathy Do you want consulting provider notified?: Yes Primary care physician: Shanna Wilson DO Hospital Course: Discharge Diagnosis: Chest Pain Systolic cardiomyopathy, undetermined etiology Stage IV colon cancer, completed cycle 2 of Folfox Hospital Course: Patient is a 73-year-old male with a history of stage IV colon cancer currently on FOLFOX therapy who presented to the ER from an outside hospital due to lactic acidosis. He initially presented there for chest pain. A CT PE of the chest which showed stable known pulmonary and liver masses with no pulmonary embolism. He was found to have a lactic acid of 4.4 was started on IV fluids. Initial troponin was negative and EKG showed no signs of acute ischemia. On arrival to our ER his vital signs were significant for pulse of 102. Laboratory analysis was significant for white blood cell count of 3.5, hemoglobin 11.5. BMP, liver enzymes, and troponin were unremarkable. Lactic acid was down to 2.1. EKG here showed sinus rhythm at a rate of 81 with normal intervals, normal access, and no significant ST-T wave changes. Arrangements were made for admission for chest pain. He respoineded well to dilaudid and then was able to transition to [place] and Flexeril. His echocardiogram came back with an ejection fraction of 40-45% with hypokinesis of the inferior wall. Repeat troponin remained negative. Cardiology was consulted and recommended outpatient stress test. He was started on Imdur, metoprolol, and lisinopril. He was determined stable for discharge. Follow-up Dr. Messina for outpatient stress test, New meds are imdur, metoprolol, and lisinopril.Follow with Dr. Marin in 1 week. [place] 10/325 q 6 hours and flex eril 5 mg three times daily as needed for pain. Patient seen and examined at bedside. He is doing well, no complaints of chest pain, no shortness of breath. Vital signs reviewed and stable. General: nontoxic, no distress, appears at stated age Cardiovascular: S1S2 reg, no murmur, positive posterior tibial pulse bilateral, Lungs: Decreased bs bilateral, no rhonchi, no rales , no accessory muscle use Abdominal: soft, nontender to palpation, no guarding, no appreciable organomegaly Ext: no gross muscle atrophy, 1+ edema b/l lower extremities, no contractures Neuro: CN II-XI grossly intact, no focal neuro deficits Psych: Alert, oriented, appropriate affect A total of 35 minutes of time were spent preparing this complex discharge summary. Patient was discharged on 04/03/23. This dictation was prepared using [employer] voice recognition software. Though every attempt is made to correct errors during dictation some may still exist. Patient Condition at Discharge: Stable Plan - Discharge Summary Discharge Rx Participant: Yes New Discharge Prescriptions: New Isosorbide Mononitrate ER [Imdur] 30 mg PO DAILY #30 tab Metoprolol Tartrate [Lopressor] 12.5 mg PO BID #60 tab HYDROcodone/APAP 10-325MG [[place] 10-325] 1 each PO Q6HR PRN #21 tab PRN Reason: Pain lisinopriL [Zestril] 2.5 mg PO DAILY #30 tab Aspirin 81 mg PO DAILY tab Cyclobenzaprine [Flexeril] 5 mg PO TID PRN #21 tab PRN Reason: Muscle Spasm Continue Ondansetron Odt [Zofran ODT] 4 mg PO Q4H PRN PRN Reason: Nausea polyethylene glycoL 3350 [Miralax] 17 gm PO DAILY Lidocaine-Prilocaine Cream [Emla Cream 2.5%/2.5%] 1 applic TOPICAL DIR ECTED PRN PRN Reason: port access ALPRAZolam [Xanax] 0.25 mg PO BID PRN PRN Reason: Anxiety Discontinued HYDROcodone/APAP 5-325MG [[place] 5-325] 1 tab PO Q8H PRN PRN Reason: Severe Pain (Scale 7 To 10) Discharge Medication List ALPRAZolam [Xanax] 0.25 mg PO BID PRN 04/01/23 [History] Lidocaine-Prilocaine Cream [Emla Cream 2.5%/2.5%] 1 applic TOPICAL DIRECTED PRN 04/01/23 [History] Ondansetron Odt [Zofran ODT] 4 mg PO Q4H PRN 04/01/23 [History] polyethylene glycoL 3350 [Miralax] 17 gm PO DAILY 04/01/23 [History] Aspirin 81 mg PO DAILY tab 04/03/23 [Rx] Cyclobenzaprine [Flexeril] 5 mg PO TID PRN #21 tab 04/03/23 [Rx] HYDROcodone/APAP 10-325MG [[place] 10-325] 1 each PO Q6HR PRN #21 tab 04/03/23 [Rx] Isosorbide Mononitrate ER [Imdur] 30 mg PO DAILY #30 tab 04/03/23 [Rx] Metoprolol Tartrate [Lopressor] 12.5 mg PO BID #60 tab 04/03/23 [Rx] lisinopriL [Zestril] 2.5 mg PO DAILY #30 tab 04/03/23 [Rx] Follow up Appointment(s)/Referral(s): Bryan Hitchcock [STAFF PHYSICIAN] - 1 Week (keep your previously scheduled appointment ) Shanna Wilson DO [Primary Care Provider] - 1-2 days Ronan Messina MD [STAFF PHYSICIAN] - 1 Week (wants to be seen in [place] if possible ) Patient Instructions/Handouts: Metoprolol (By mouth), Lisinopril (By mouth), Hydrocodone/Acetaminophen (By mouth), Cyclobenzaprine (By mouth), Isosorbide Mononitrate (By mouth), Chest Pain (DC) Activity/Diet/Wound Care/Special Instructions: Activity: As tolerated Diet: Heart Healthy (low fat, low salt) Special Instructions Return to hospital with worsening/changing chest pain, shortness of breath, lig htheadedness, dizziness, or pain down your left arm or into your left jaw. Check your blood pressure once daily and make a log as you are now on medications that can lower blood pressure. Thank you for trusting us with your care, we wish you well on your journey to better health. Discharge Disposition: HOME SELF-CARE
--- NOTE | 2023-04-03 10:10 | P.CRDCN ---
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 He has a past medical history of stage IV colon cancer recently received his first chemotherapy treatment, metastatic disease to the liver, lung. We have been asked to evaluate the patient for chest pain and new cardiomyopathy. Echocardiogram revealed EF of 40-45%, hypokinesis of the inferior wall suggestive of prior NE. Patient denies knowing of previous NE. He states that he has had some chest pain across his chest as well as pain at the site of his port. Currently, patient complains of abdominal pain and gas pain and dry mouth. He also had episode of pain in the right arm that was 10/10. Patient states that he is expected for discharge today. EKG sinus rhythm, low voltage Chest x-ray: WBC 3.2, hemoglobin 10.9, platelet count 246. INR 1.3. Sodium 135, potassium 3.9, BUN 19 creatinine 0.6. Troponin negative 2 Home cardiac medications: None Review Of Systems: At the time of my evaluation: Constitutional: No fever, no chills. No weakness, fatigue or lethargy. EENT: No headache. No dizziness. Lungs: No shortness of breath, cough, no sputum production. No wheezing. Cardiovascular: + chest pain, no lower extremity edema. No palpitations. No paroxysmal nocturnal dyspnea. No orthopnea. No lightheadedness or dizziness. No syncopal episodes. Abdominal: + abdominal pain. No nausea, vomiting. No diarrhea. No constipation. No bloody or tarry stools. Genitourinary: No dysuria.. No urinary retention. Musculoskeletal: No myalgias. No muscle weakness, no frequent falls. No back pain. No neck pain. Integumentary: No wounds. No rash. No unusual bruising. Neurologic: No aphasia. No facial droop. No change in mentation. No head injury. No headache. Physical examination: Gen: This is a 73-year-old male resting in bed appears to be comfortable. VS: reviewed HEENT: Head is atraumatic, normocephalic. Pupils equal, round. Sclerae is anicteric. NECK: Supple. No JVD. LUNGS: Clear to auscultation. No wheezes or rhonchi. No intercostal retractions. HEART: Regular rate and rhythm. No murmur. EXTREMITIES: No pedal edema. No calf tenderness. NEUROLOGICAL: Patient is awake, alert and oriented x3. 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 Patient may follow-up in the office and we will consider doing outpatient stress test depending on patient's prognosis from his colon cancer. This will be discussed with his oncologist. Thank you kindly for this consultation. Nurse practitioner note has been reviewed, I agree with documented findings and plan of care. Patient was seen and examined. Past Medical History Past Medical History: Cancer Additional Past Medical History / Comment(s): Colon cancer- stage 4, colonoscopy History of Any Multi-Drug Resistant Organisms: None Reported Past Surgical History: No Surgical Hx Reported Additional Past Surgical History / Comment(s): colonoscopy, R port placement Past Anesthesia/Blood Transfusion Reactions: No Reported Reaction Past Psychological History: No Psychological Hx Reported Smoking Status: Former smoker Past Alcohol Use History: None Reported Additional Past Alcohol Use History / Comment(s): patient lives with son, patient independent, patient quit smoking 40 years ago Past Drug Use History: None Reported Medications and Allergies Home Medications Medication Instructions Recorded Confirmed Type ALPRAZolam [Xanax] 0.25 mg PO BID PRN 04/01/23 04/01/23 History Lidocaine-Prilocaine Cream [Emla 1 applic TOPICAL DIRECTED PRN 04/01/23 04/01/23 History Cream 2.5%/2.5%] Ondansetron Odt [Zofran ODT] 4 mg PO Q4H PRN 04/01/23 04/01/23 History polyethylene glycoL 3350 [Miralax] 17 gm PO DAILY 04/01/23 04/01/23 History Aspirin 81 mg PO DAILY tab 04/03/23 Rx Cyclobenzaprine [Flexeril] 5 mg PO TID PRN #21 tab 04/03/23 Rx HYDROcodone/APAP 10-325MG [[place] 1 each PO Q6HR PRN #21 tab 04/03/23 Rx 10-325] Isosorbide Mononitrate ER [Imdur] 30 mg PO DAILY #30 tab 04/03/23 Rx Metoprolol Tartrate [Lopressor] 12.5 mg PO BID #60 tab 04/03/23 Rx lisinopriL [Zestril] 2.5 mg PO DAILY #30 tab 04/03/23 Rx Allergies Allergy/AdvReac Type Severity Reaction Status Date / Time No Known Allergies Allergy Verified 04/01/23 10:11 Physical Exam Vitals: Vital Signs Temp Pulse Resp BP Pulse Ox 04/03/23 02:46 98.1 F 88 18 132/74 93 L 04/02/23 20:25 98.5 F 88 18 111/62 93 L 04/02/23 13:43 97.6 F 114 H 28 H 167/96 98 Intake and Output 04/02/23 04/03/23 04/03/23 22:59 06:59 14:59 Output Total 500 Balance -500 Output: Urine 500 Other: Voiding Method Toilet Results 04/03/23 06:00 04/03/23 06:00 Cardiac Enzymes 04/02/23 Range/Units 15:21 Troponin I 0.015 (0.000-0.034) ng/mL Coagulation 04/02/23 Range/Units 15:21 PT 12.8 H (9.0-12.0) sec APTT 63.9 H (22.0-30.0) sec CBC 04/02/23 04/03/23 Range/Units 05:21 06:00 WBC 4.40 L 3.2 L (4.50-10.00) X 10*3/uL RBC 4.12 L 3.97 L (4.40-5.60) X 10*6/uL Hgb 11.0 L 10.9 L (13.0-17.0) d/dL Hct 35.9 L 34.5 L (39.6-50.0) % Plt Count 321 246 (140-440) X 10*3/uL Comprehensive Metabolic Panel 04/02/23 Range/Units 05:21 Sodium 139 (135-145) mmol/L Potassium 4.1 (3.5-5.5) mmol/L Chloride 104 (96-109) mmol/L Carbon Dioxide 20.2 L (21.6-31.8) mmol/L BUN 16.6 (9.0-27.0) mg/dL Creatinine 0.8 (0.6-1.5) mg/dL Glucose 134 H (70-110) mg/dL Calcium 8.6 L (8.7-10.3) mg/dL Current Medications Generic Name Dose Route Start Last Admin Trade Name Freq PRN Reason Stop Dose Admin Acetaminophen 650 mg 04/01/23 16:21 Acetaminophen Tab 325 Mg Tab PO Q6HR PRN Mild Pain or Fever > 100.5 Hydrocodone Bitart/Acetaminophen 1 each 04/01/23 16:23 04/02/23 22:20 Hydrocodone/Apap 10-325mg 1 Each Tab PO 1 each Q6HR PRN Administration Pain Alprazolam 0.25 mg 04/01/23 16:23 04/02/23 05:42 Alprazolam 0.25 Mg Tab PO 0.25 mg BID PRN Administration Anxiety Aspirin 81 mg 04/03/23 09:00 Aspirin 81 Mg PO DAILY DAWNA Cyclobenzaprine HCl 5 mg 04/01/23 15:29 04/02/23 17:10 Cyclobenzaprine 5 Mg Tab PO 5 mg TID PRN Administration Muscle Spasm Hydromorphone HCl 0.5 mg 04/01/23 09:40 04/01/23 11:29 Hydromorphone 0.5 Mg/0.5 Ml Syringe IVP 0.5 mg Q3HR PRN Administration Moderate Pain (Scale 4 to 6) Hydromorphone HCl 1 mg 04/01/23 12:54 04/02/23 05:08 Hydromorphone 1 Mg/Ml 1 Ml Syringe IVP 1 mg Q3HR PRN Administration Severe Pain (Scale 7 to 10) Sodium Chloride 1,000 mls @ 75 mls/hr 04/01/23 09:00 04/02/23 22:16 Saline 0.9% IV 75 mls/hr .[id number] DAWNA Administration Lisinopril 2.5 mg 04/03/23 09:00 Lisinopril 2.5 Mg Tab PO DAILY DAWNA Melatonin 3 mg 04/01/23 16:21 Melatonin 3 Mg Tablet PO HS PRN Insomnia Metoprolol Tartrate 12.5 mg 04/02/23 21:00 04/02/23 20:38 Metoprolol Tartrate 12.5 Mg Tab PO 12.5 mg BID DAWNA Administration Naloxone HCl 0.2 mg 04/01/23 09:40 Naloxone 0.4 Mg/Ml 1 Ml Vial IV Q2M PRN Opioid Reversal Ondansetron HCl 4 mg 04/01/23 16:21 Ondansetron 4 Mg/2 Ml Vial IVP Q8HR PRN Nausea And Vomiting Polyethylene Glycol 17 gm 04/02/23 09:00 04/02/23 09:32 Polyethylene Glycol 3350 17 Gm Powd.Pack PO 17 gm DAILY DAWNA Administration Intake and Output 04/02/23 04/03/23 04/03/23 22:59 06:59 14:59 Output Total 500 Balance -500 Output: Urine 500 Other: Voiding Method Toilet 04/03/23 06:00 04/02/23 05:21
--- NOTE | 2023-04-03 13:24 | P.PN ---
Subjective Progress Note Date: 04/03/23 Principal diagnosis: chest pain, colon cancer At today's visit patient is resting comfortably in bed. Patient reports chest pain has resolved. Reports mild gas pains in lower abdomen. Denies nausea vomiting diarrhea. Plan for discharge today. Objective - Vital Signs Vital signs: Vital Signs Temp 98.4 F 04/03/23 08:00 Pulse 92 04/03/23 09:16 Resp 19 04/03/23 09:16 BP 138/75 04/03/23 08:00 Pulse Ox 95 04/03/23 08:00 FiO2 Intake & Output 04/02/23 04/03/23 04/03/23 18:59 06:59 18:59 Output Total 350 500 Balance -350 -500 Weight 115.212 kg Output: Urine 350 500 Other: Voiding Method Toilet Toilet Toilet # Voids 1 - Constitutional General appearance: Present: average body habitus, no acute distress - EENT Eyes: Present: anicteric sclerae, EOMI ENT: Present: hearing grossly normal - Respiratory Details: breathing even and unlabored - Cardiovascular Details: skin warm and dry - Integumentary Integumentary: Absent: cyanotic, jaundiced - Neurologic Neurologic Comment(s): grossly intact - Musculoskeletal Musculoskeletal: Present: strength equal bilaterally - Psychiatric Psychiatric: Present: A&O x's 3, appropriate affect, intact judgment & insight - Labs CBC & Chem 7: 04/03/23 06:00 04/03/23 06:00 Labs: Abnormal Lab Results - Last 24 Hours (Table) 04/02/23 04/03/23 04/03/23 Range/Units 15:21 06:00 06:00 WBC 3.2 L (3.8-10.6) k/uL RBC 3.97 L (4.30-5.90) m/uL Hgb 10.9 L (13.0-17.5) gm/dL Hct 34.5 L (39.0-53.0) % RDW 18.2 H (11.5-15.5) % PT 12.8 H (9.0-12.0) sec INR 1.3 H (<1.2) APTT 63.9 H (22.0-30.0) sec Sodium 135 L (137-145) mmol/L Creatinine 0.60 L (0.66-1.25) mg/dL Glucose 132 H (74-99) mg/dL Calcium 8.3 L (8.4-10.2) mg/dL - Imaging and Cardiology Venous US: report reviewed echocardiogram reviewed Assessment and Plan (1) Chest pain Status: Acute Priority: High Code(s): R07.9 - CHEST PAIN, UNSPECIFIED SNOMED Code(s): 16229124 (2) Colon cancer Status: Acute Priority: High Code(s): C18.9 - MALIGNANT NEOPLASM OF COLON, UNSPECIFIED SNOMED Code(s): 403147434 Plan: Chest pain: -Reporting chest pain with cycle 1 and 2 with chemo 5FU pump. -CTA negative for PE/acute processes. Troponins negative -Echo revealed mild to moderate left ventricular systolic dysfunction, EF 40- 45%. Hypokinesis of the inferior wall suggestive of a prior MD. No pericardial effusion noted -Doppler of RUE negative for DVT -Cardiology consulted. Patient has been started on metoprolol, lisinopril, baby aspirin, and Imdur 30 mg daily. Plan for oupt f/u with possible stress test -Spoke with IM team regarding case. [place] was increased and flexeril has been started. Chest pain has resolved. Symptoms seem to be likely related to MSK chest wall pain or esophageal spasms due to increasing cold sensitivities. discussed with patient that if symptoms occur during next cycle to take muscle r elaxer and Tylenol or Motrin to see if symptoms improve. If symptoms persist or become severe he was instructed to go to the ER for further evaluation. If his symptoms are persisting despite discussed interventions may need to adjust chemotherapy regimen. Will continue to monitor Metastatic colon adenocarcinoma: -History as stated in the HPI -Completed cycle 2 of FOLFOX on 04/01/23. Overall tolerating treatment well -Clinic f/u upon discharge. Will continue to monitor symptoms and if symptoms persist despite recommended interventions will need to reassess and possibly adjust treatment regimen. Discussed the same with patient in detail. Patient verbalized understanding and was agreeable with plan Patient is cleared from oncology standpoint for discharge once cleared by internal medicine and other consulted medical specialties
[2023-04-03 14:11] LABS: Chol/HDL Ratio 4.18 Ratio; LDL Cholesterol,Calculated 60.2 mg/dL (0.0-131.0); VLDL Calculation 19.74 mg/dL (5.00-40.00)
[2023-04-03 23:10] LABS: % Iron Saturation 29.03 (15.00-50.00); Iron 54 UG/DL (65-175); Total Iron Binding Capacity 186 UG/DL (228-460)
--- NOTE | 2023-04-07 14:35 | CDI ---
Documentation Clarification Form Date: 04/07/2023 02:17:59 PM From: Noemy Jimenez RN CCDS Phone: [phone] Admit Date: 04/01/2023 09:41:00 AM Patient Name: Pepe Zuniga Visit Number: [id number] Discharge Date: 04/03/2023 12:30:00 PM ATTENTION: The Clinical Documentation Specialists (CDI) and [facility] Coding Staff appreciate your assistance in clarifying documentation. Please respond to the clarification below the line at the bottom and electronically sign. The CDI & [facility] Coding staff will review the response and follow-up if needed. Please note: Queries are made part of the Legal Health Record. If you have any questions, please contact the author of this message via ITS. Dr. Vani Abdullahi There is documentation of chest pain, 04/03, Discharge summary. Additional clarification is requested. History/Risk Factors: 73-year-old male presented to ED from outside hospital due to lactic acidosis and initially presented there for chest pain. Medical history: Pulmonary and liver masses, Stage IV Colon cancer, Clinical Indicators: 04/01, CT from outside hospital which showed stable unknown pulmonary and liver masses with no pulmonary embolism. 04/01, H&P: He reports that he had a similar episode last time he was completing his FOLFOX therapy and he is due to have his chemo system removed today. He reports that pain is a burning sensation across his chest which comes and goes but has been fairly constant for the last day. He is unable to tell me what makes it better or worse. 04/01, H&P Chest pain lactic acidosis Stage IV colon cancer - CTA chest negative, trop negative X 2 - suspect related to chemo, consult Dr. Hitchcock 04/02 Troponins negative x 3; Stat EKG reordered which shows normal sinus rhythm with 1 PVC at a rate of 101, normal axis, normal intervals with T-wave inversion in lead 1, V2 and V3. 04/02 Oncology Consult: Completed cycle 2 of FOLFOX on 04/01/23.Overall tolerating treatment well -Clinic f/u upon discharge. Will try muscle relaxer with next cycle to see if symptoms improve. Treatment: Oncology consult; Cardiology consult; Flexeril TID PRN, Can you please clarify chest pain? [ X ] Chest pain related to chemotherapy treatment [ ] Chest pain related to Costochondritis [ ] Chest pain related to (please specifiy) [ ] Other, please specify [ ] Unable to determine (Template Last Revised: August 2020) MTDD
== END 2023-04-03 12:30 | disposition home or self-care (01) | DRG 313 ==
LOC: EC 08:31 → SUPCPDRO 08:31 → 5NMEDONC 09:41
PROVIDERS: ADMIT Internal Medicine; ATTEND Internal Medicine
DX: R07.89 Other chest pain (principal); E87.20 Acidosis, unspecified; C18.7 Malignant neoplasm of sigmoid colon; C78.00 Secondary malignant neoplasm of unspecified lung; C78.6 Secondary malignant neoplasm of retroperitoneum and peritoneum; C78.7 Secondary malignant neoplasm of liver and intrahepatic bile duct; Z66 Do not resuscitate; T45.1X5A Adverse effect of antineoplastic and immunosuppressive drugs, initial encounter; I25.5 Ischemic cardiomyopathy; I25.2 Old myocardial infarction; Z79.899 Other long term (current) drug therapy; Z87.891 Personal history of nicotine dependence; Z71.6 Tobacco abuse counseling
CPT/HCPCS: 36415; 80048; 80053; 80061; 82728; 83540; 83550; 83605; 84443; 84484; 85025; 85027; 85610; 85730; 93005; 93306; 96361; 96374; 99285